=== PATIENT | female | born 1955 | race Caucasian/White ===

== ENCOUNTER → 2024-01-15 08:45 | Outpatient (CLI) | payer OTHER, SELFPAY ==
[2024-01-15 10:41] LABS: Add Manual Diff / Slide Review NO; Basophils Absolute Auto 0 /uL (0-100); Basophils Percent Auto 0.7 % (0-2); Eosinophils Absolute Auto 100 /uL (0-450); Eosinophils Percent Auto 1.9 % (2-4); Hematocrit 39.1 % (36-46); Hemoglobin 12.6 g/dL (12.0-16.0); Lymphocytes Absolute Auto 1800 /uL (1100-4500); Lymphocytes Percent Auto 30.6 % (25-40); Mean Corpuscular HGB Conc 32.2 % (30-36); Mean Corpuscular Hemoglobin 21.3 PG (26-34); Monocytes Absolute Auto 400 /uL (0-900); Monocytes Percent Auto 6.7 % (3-14); Neutrophils Absolute Auto 3600 /uL (1500-7000); Neutrophils Percent Auto 60.1 % (50-75); Platelet Count 278 X10^3/uL (150-400); Red Blood Cell Count 5.92 X10^6/uL (4.0-5.2); Red Cell Distribution Width 15.8 % (11.6-14.8); White Blood Cell Count 5.9 X10^3/uL (4.5-11.0)
[2024-01-15 10:51] LABS: Anisocytosis 1+
[2024-01-15 10:53] LABS: Alanine Aminotransferase 17 IU/L (<35); Albumin 4.8 g/dL (3.5-5.0); Albumin Globulin Ratio 1.8 (1.0-2.8); Alkaline Phosphatase 67 U/L (38-126); Aspartate Aminotransferase 28 IU/L (14-36); BUN Creatinine Ratio 21.1 (6-22); Bilirubin Total 0.5 mg/dL (0.2-1.3); Blood Urea Nitrogen 15 mg/dL (7-17); Calcium 9.4 mg/dL (8.4-10.2); Carbon Dioxide 22 mmol/L (22-32); Chloride 107 mmol/L (98-107); Estimated Glomerular Filt Rate > 60 mL/min (>60); Globulin 2.6 g/dL (1.7-4.1); Glucose 97 mg/dL (80-110); HEMOLYSIS < 15 (0-50); Potassium 4.5 mmol/L (3.4-5.1); Sodium 141 mmol/L (137-145); Total Protein 7.4 g/dL (6.3-8.2)
[2024-01-15 10:54] LABS: Hemoglobin A1C% w Est Avg Glu 5.3 % (4.0-6.0)
[2024-01-15 10:58] LABS: Rheumatoid Factor < 8.6 IU/mL (<12.0)
[2024-01-15 11:02] LABS: Erythrocyte Sedimentation Rate 13 MM/HR (0-20)
[2024-01-15 11:37] LABS: Thyroid Stimulating Hormone 2.34 uIU/mL (0.47-4.68)
[2024-01-17 22:10] LABS: ANA Screen, IFA Negative (.)
[2024-01-25 10:14] LABS: HLA B27 Negative (.)
== END ==
PROVIDERS: Family Provider Family Medicine; PCP Family Medicine; Referring Provider Ophthalmology; Visit Provider Ophthalmology
DX: H20.00 Unspecified acute and subacute iridocyclitis (principal); H44.132 Sympathetic uveitis, left eye; M35.00 Sjogren syndrome, unspecified
CPT/HCPCS: 36415; 80053; 81374; 83036; 84443; 85025; 85651; 86038; 86430

== ENCOUNTER → 2024-07-24 13:57 | Outpatient (CLI) | payer OTHER, SELFPAY ==
--- NOTE | 2024-07-24 14:01 | DI.US.S_ITS ---
PROCEDURE: US SOFT TISSUE HEAD AND NECK INDICATIONS: throat pain TECHNIQUE: Real-time scanning was performed of the neck region of interest, with image documentation. COMPARISON: None. FINDINGS: No evidence of enlarged cervical lymph nodes or other abnormalities by ultrasound. No thyroid nodules. The bilateral submandibular and parotid glands appear within normal limits. IMPRESSION: No abnormalities are seen within the neck. No cause for patient's symptoms is identified. Dictated by: Robb Scott M.D. on 07/24/2024 at 19:54 Approved by: Robb Scott M.D. on 07/24/2024 at 19:55
== END ==
PROVIDERS: Family Provider Family Medicine; PCP Family Medicine; Referring Provider Physician Assistant; Visit Provider Physician Assistant
DX: R07.0 Pain in throat (principal)
CPT/HCPCS: 76536